=== PATIENT | female | born 1990 | race Caucasian/White ===

== ENCOUNTER 2020-11-02 06:55 | Inpatient (IN) ==
[2020-11-02] MEDS ORDERED: EPHEDrine 50 MG/ML VIAL IVP PRN (07:07)
[2020-11-02] MEDS ORDERED: Epidural Premix (fent/bupiv) 110 ML EP SCH (07:15)
[2020-11-02] MEDS ORDERED: Famotidine 20 MG/2 ML VIAL IVP PRN (07:51)
[2020-11-02] MEDS ORDERED: Metoclopramide 10 MG/2 ML VIAL IVP PRN (07:51)
[2020-11-02] MEDS ORDERED: Azithromycin 500 MG in 0.9 % Sodium Chloride 250 ML IVPB PRN (07:51)
[2020-11-02] MEDS ORDERED: Naloxone 0.4 MG/ML INJ IVP PRN (07:51)
[2020-11-02] MEDS ORDERED: Ondansetron 4 MG/2 ML VIAL IVP PRN (07:51)
[2020-11-02] MEDS ORDERED: Ringers Solution, Lactated 1,000 ML IVC SCH (08:00)
[2020-11-02 08:02] LABS: Basophils % 0.4 %; Eosinophils # 0.1 K/mcL (0.0-0.6); Eosinophils % 1.3 %; Hematocrit 33.8 % (35.3-44.9); Hemoglobin 11.1 g/dL (11.5-15.4); Immature Granulocytes % 0.6 % (0-4); Lymphocytes # 1.6 K/mcL (0.6-4.6); Lymphocytes % 17.1 %; Mean Corpuscular HGB Conc 32.8 g/dL (31.6-35.5); Mean Corpuscular Hemoglobin 30.8 pg (28.0-33.3); Mean Corpuscular Volume 93.9 fL (83.0-100.0); Mean Platelet Volume 11.3 fL (9.4-12.4); Monocytes # 0.8 K/mcL (0.0-1.3); Monocytes % 8.3 %; Neutrophils # 6.8 K/mcL (1.6-8.9); Platelet Count 211 K/mcL (140-400); Red Cell Distribution Width 12.1 % (11.5-14.5); Segmented Neutrophils % 72.3 %; White Blood Count 9.4 K/mcL (4.3-11.1)
[2020-11-02] MEDS ORDERED: Vancomycin (wt based) 1,000 MG VIAL IV SCH (08:05)
[2020-11-02 09:00] LABS: Alanine Aminotransferase 11 Units/L (7-52); Aspartate Amino Transferase 15 Units/L (13-39); BUN/Creatinine Ratio 17 (6-26); Blood Urea Nitrogen 13 mg/dL (6-20); Lactate Dehydrogenase 150 Units/L (140-271); Uric Acid 5.4 mg/dL (2.3-7.6); eGFR For African Americans > 60 (> 60); eGFR For Non-African Americans > 60 (> 60)
[2020-11-02] MEDS ORDERED: Vancomycin 1,500 MG/265 ML IV.SOLN IVPB SCH (09:00)
[2020-11-02 10:10] LABS: Amphetamine Screen,Urine Negative ng/mL (Cutoff=1000); Barbiturate Screen,Urine Negative ng/mL (Cutoff=200); Benzodiazepines Screen,Urine Negative ng/mL (Cutoff=200); Cannabinoid Screen,Urine Negative ng/mL (Cutoff = 50); Cocaine Screen,Urine Negative ng/mL (Cutoff= 300); Opiate Screen,Urine Negative ng/mL (Cutoff=300); Phencyclidine Screen,Urine Negative ng/mL (Cutoff=25)
[2020-11-02 10:37] LABS: Bilirubin,Urine Negative (Negative); Blood,Urine Negative (Negative); Clarity,Urine Clear (Clear); Color,Urine Light-Yellow (Yellow); Glucose,Urine (UA) Normal (Normal); Ketones,Urine Negative (Negative); Leukocyte Esterase,Urine Negative (Negative); Nitrite,Urine Negative (Negative); PH,Urine 7.5 pH Units (5.0-8.0); Protein,Urine Negative (Neg-Trace); Specific Gravity,Urine 1.015 (1.010-1.025); Urobilinogen,Urine Normal (Normal)
[2020-11-02 10:45] LABS: Protein/Creatinine Ratio,Urine 0.1 mg/mg (0.00-0.20)
[2020-11-02] MEDS: *HR* Nalbuphine 10 MG/ML AMPUL IV PRN ×2 (10:53→13:55)
[2020-11-02] MEDS ORDERED: Lidocaine 1% 20 ML MDV ONE (15:40)
[2020-11-02] MEDS ORDERED: Lanolin 7 G OINT...G. TP PRN (17:06)
[2020-11-02] MEDS ORDERED: Benzocaine/Menthol 56 GM AEROSOL SPRAY TP PRN (17:06)
[2020-11-02] MEDS ORDERED: Oxytocin 20 units/ LR 1000 mL 20 UNIT/1,000 ML BAG IVC SCH (17:06)
[2020-11-02] MEDS ORDERED: Measles/Mumps/Rubella Vacc 0.5 ML VIAL SQ PRN (17:06)
[2020-11-02] MEDS: Ibuprofen 600 MG TABLET PO SCH (20:36)
[2020-11-02] MEDS: Acetaminophen 325 MG TABLET PO SCH (20:36)
[2020-11-03 07:47] VITALS: BP 112/71
[2020-11-03] MEDS: Acetaminophen 325 MG TABLET PO SCH ×2 (07:50→15:34)
[2020-11-03] MEDS: Ibuprofen 600 MG TABLET PO SCH ×2 (07:50→15:34)
[2020-11-03] MEDS ORDERED: Prenatal Vit/FA 1 EACH TABLET PO SCH (09:00)
== END 2020-11-03 17:21 | disposition home or self-care (01) | DRG 807 ==
LOC: 1NENULAB → 1NENUOBS 18:32
PROVIDERS: ADMIT Obstetrics & Gynecology; ATTEND Obstetrics & Gynecology